=== PATIENT | male | born 1990 | race Caucasian/White ===

== ENCOUNTER 2018-09-29 13:10 | Emergency (ER) | payer OTHER, SELFPAY ==
[2018-09-29] MEDS ORDERED: NA CHLORIDE 0.9% 500 ML ONE (13:50)
[2018-09-29] MEDS ORDERED: NA CHLORIDE 0.9% 1,000 ML ONE (13:50)
--- NOTE | 2018-09-29 14:11 | ER ---
Nurse's Notes [facility] Name: Keshav Robert Age: 28 yrs Sex: Male : 1990 Arrival Date: 09/29/2018 Time: 13:17 Bed 24 Private MD: Diagnosis: Hypoglycemia, unspecified;Type 1 diabetes mellitus Presentation: 09/29 13:17 Presenting complaint: EMS states: Pt is from home with IDDM. Diamond said he was normal ca1 this morning with BS of 300. PT did not eat this morning then took his insulin then took a nap at about 1030 am. Diamond woke up, pt was unresponsive and convulsing for a short period of time. Upon EMS arrival to the scene pt was lethargic with BS of 37. Gave 250ML D10W, BS increased to 189 and is fully alert and awake now. Transition of care: patient was not received from another setting of care. Onset of symptoms was September 29, 2018. Risk Assessment: Do you want to hurt yourself or someone else? Patient reports no desire to harm self or others. Initial Sepsis Screen: Does the patient meet any 2 criteria? No. Patient's initial sepsis screen is negative. Does the patient have a suspected source of infection? No. Patient's initial sepsis screen is negative. Care prior to arrival: Medication(s) given: D10W 250ML IV initiated. 18 GA, in the right antecubital area. 13:17 Method Of Arrival: EMS: [facility] ca1 13:17 Acuity: ALIS 3 ca1 Triage Assessment: 13:26 General: Appears in no apparent distress. comfortable, Behavior is calm, cooperative, ca1 appropriate for age. Pain: Denies pain. Historical: - Allergies: 13:26 No Known Allergies; ca1 - Home Meds: 13:26 Novolin N 100 unit/mL Sub-Q susp [Active]; Novolog Flexpen 100 unit/mL subcutaneous ca1 inpn [Active]; timolol maleate 0.25 % Opht drop 1 drop 2 times per day [Active]; prednisolone acetate 1 % Opht drps 1 drop 4 times per day [Active]; polymyxin B sulf-trimethoprim 10,000 unit- 1 mg/mL ophthalmic drop 1 drop 4 times a day [Active]; - PMHx: 13:26 Diabetes - IDDM; Retinal Detachment; ca1 - PSHx: 13:26 Retinal Surg; ca1 - Immunization history:: Adult Immunizations up to date, Flu vaccine is up to date. - Social history:: Smoking status: Patient/guardian denies using tobacco. - Ebola Screening: : Patient negative for fever greater than or equal to 101.5 degrees Fahrenheit, and additional compatible Ebola Virus Disease symptoms Patient denies exposure to infectious person Patient denies travel to an Ebola-affected area in the 21 days before illness onset No symptoms or risks identified at this time. - Family history:: not pertinent. Screenin:30 Abuse screen: Denies threats or abuse. Denies injuries from another. Nutritional ca1 screening: No deficits noted. Tuberculosis screening: No symptoms or risk factors identified. Fall Risk IV access (20 points). Assessment: 13:30 General: Appears in no apparent distress. comfortable, Behavior is calm, cooperative, ca1 appropriate for age. Pain: Denies pain. Neuro: Level of Consciousness is awake, alert, obeys commands, Oriented to person, place, time, situation, Appropriate for age. Cardiovascular: Heart tones S1 S2 present Capillary refill < 3 seconds Patient's skin is warm and dry. Pulses are all present. Respiratory: Airway is patent Respiratory effort is even, unlabored, Respiratory pattern is regular, symmetrical, Breath sounds are clear bilaterally. GI: Abdomen is flat, non-distended, Bowel sounds present X 4 quads. Abd is soft and non tender X 4 quads. : No deficits noted. No signs and/or symptoms were reported regarding the genitourinary system. EENT: No deficits noted. No signs and/or symptoms were reported regarding the EENT system. Derm: Skin is intact, is healthy with good turgor, Skin is pink, warm \T\ dry. Musculoskeletal: Circulation, motion, and sensation intact. Capillary refill < 3 seconds, Range of motion: intact in all extremities. 13:55 Reassessment: Patient appears in no apparent distress at this time. Family at bedside. ca1 Pt eating. 14:15 Reassessment: Patient appears in no apparent distress at this time. Patient and/or ca1 family updated on plan of care and expected duration. Pain level reassessed. Patient is alert, oriented x 3, equal unlabored respirations, skin warm/dry/pink. Pt consumed meal provided. Pt tolerated well. No N/V reported. 14:21 Reassessment: IVF still infusing. Will discharge as soon as completed. ca1 15:00 Reassessment: Patient appears in no apparent distress at this time. Patient is alert, ca1 oriented x 3, equal unlabored respirations, skin warm/dry/pink. Vital Signs: 13:26 BP 121 / 91; Pulse 105; Resp 17 S; Temp 98.1(O); Pulse Ox 100% on R/A; Weight 74.84 kg ca1 (R); Height 5 ft. 7 in. (170.18 cm) (R); Pain 0/10; 14:15 BP 118 / 74; Pulse 102; Resp 17 S; Pulse Ox 100% on R/A; ca1 15:00 BP 119 / 76; Pulse 102; Resp 17 S; Temp 98(O); Pulse Ox 100% on R/A; ca1 13:26 Body Mass Index 25.84 (74.84 kg, 170.18 cm) ca1 ED Course: 13:17 Patient arrived in ED. ca1 13:20 Aashish Dougherty MD is Attending Physician. diogo 13:22 Triage completed. ca1 13:26 Arm band placed on right wrist. ca1 13:29 Asiya Leger, RN is Primary Nurse. ca1 13:30 Patient has correct armband on for positive identification. Placed in gown. Bed in low ca1 position. Call light in reach. Side rails up X2. Pulse ox on. NIBP on. Warm blanket given. Pillow given. Diet: Patient given a regular meal tray. Patient given juice. 13:30 No provider procedures requiring assistance completed. Maintain EMS IV. Dressing ca1 intact. Good blood return noted. Site clean \T\ dry. Gauge \T\ site: G18 RAC. 15:10 IV discontinued, intact, bleeding controlled, No redness/swelling at site. Pressure ca1 dressing applied. Administered Medications: 13:40 Drug: NS 0.9% (20 ml/kg) 20 ml/kg Route: IV; Rate: 1 bolus; Site: right antecubital; ca1 15:03 Follow up: IV Status: Completed infusion ca1 Point of Care Testing: Blood Glucose: 13:18 Blood Glucose: 103 mg/dL; iw 14:45 Blood Glucose: 130 mg/dL; ca1 Ranges: Outcome: 14:11 Discharge ordered by . diogo 15:10 Discharged to home via wheelchair. ca1 15:10 Condition: stable 15:10 Discharge instructions given to patient, Instructed on discharge instructions, follow up and referral plans. Demonstrated understanding of instructions, follow-up care. 15:14 Patient left the ED. ca1 Signatures: Aashish Dougherty MD MD cha Williams, Irene, RN RN iw Asiya Leger RN RN ca1
[2018-09-29 14:12] LABS: Absolute Lymphocytes (CBC) 1.9 K/uL (0.7-4.9); Basophils % 0.8 % (0-1.3); Eosinophils % 3.5 % (0-4.4); Lymphocytes % 31.5 % (15.3-44.8); MPV 9.6 fL (7.6-11.3); Monocytes % 6.5 % (3.3-12.3); RBC Red Blood Cell Count 4.83 M/uL (4.33-5.43)
--- NOTE | 2018-09-29 14:12 | EDPHYS ---
Physician Documentation [facility] Name: Keshav Robert Age: 28 yrs Sex: Male : 1990 Arrival Date: 09/29/2018 Time: 13:17 Bed 24 Private MD: ED Physician Aashish Dougherty HPI: 09/29 13:31 This 28 yrs old Male presents to ER via EMS with complaints of Low Blood diogo Sugar. 13:31 The patient or guardian reports hypoglycemia, that was potentially precipitated by no diogo particular event. Onset: The symptoms/episode began/occurred this morning. Associated signs and symptoms: Pertinent positives: None. Pertinent negatives: None. The patient has experienced similar episodes in the past, a few times. Historical: - Allergies: 13:26 No Known Allergies; ca1 - Home Meds: 13:26 Novolin N 100 unit/mL Sub-Q susp [Active]; Novolog Flexpen 100 unit/mL subcutaneous ca1 inpn [Active]; timolol maleate 0.25 % Opht drop 1 drop 2 times per day [Active]; prednisolone acetate 1 % Opht drps 1 drop 4 times per day [Active]; polymyxin B sulf-trimethoprim 10,000 unit- 1 mg/mL ophthalmic drop 1 drop 4 times a day [Active]; - PMHx: 13:26 Diabetes - IDDM; Retinal Detachment; ca1 - PSHx: 13:26 Retinal Surg; ca1 - Immunization history:: Adult Immunizations up to date, Flu vaccine is up to date. - Social history:: Smoking status: Patient/guardian denies using tobacco. - Ebola Screening: : Patient negative for fever greater than or equal to 101.5 degrees Fahrenheit, and additional compatible Ebola Virus Disease symptoms Patient denies exposure to infectious person Patient denies travel to an Ebola-affected area in the 21 days before illness onset No symptoms or risks identified at this time. - Family history:: not pertinent. ROS: 13:31 Constitutional: Negative for fever, chills, and weight loss, Eyes: Negative for injury, diogo pain, redness, and discharge, ENT: Negative for injury, pain, and discharge, Neck: Negative for injury, pain, and swelling, Cardiovascular: Negative for chest pain, palpitations, and edema, Respiratory: Negative for shortness of breath, cough, wheezing, and pleuritic chest pain, Abdomen/GI: Negative for abdominal pain, nausea, vomiting, diarrhea, and constipation, Back: Negative for injury and pain, : Negative for injury, bleeding, discharge, and swelling, MS/Extremity: Negative for injury and deformity, Skin: Negative for injury, rash, and discoloration, Psych: Negative for depression, anxiety, suicide ideation, homicidal ideation, and hallucinations, Allergy/Immunology: Negative for hives, rash, and allergies, Hematologic/Lymphatic: Negative for swollen nodes, abnormal bleeding, and unusual bruising. 13:31 Neuro: Positive for weakness. 13:31 Endocrine: Positive for ams. Exam: 13:31 Constitutional: This is a well developed, well nourished patient who is awake, alert, diogo and in no acute distress. Head/Face: Normocephalic, atraumatic. Eyes: Pupils equal round and reactive to light, extra-ocular motions intact. Lids and lashes normal. Conjunctiva and sclera are non-icteric and not injected. Cornea within normal limits. Periorbital areas with no swelling, redness, or edema. ENT: Nares patent. No nasal discharge, no septal abnormalities noted. Tympanic membranes are normal and external auditory canals are clear. Oropharynx with no redness, swelling, or masses, exudates, or evidence of obstruction, uvula midline. Mucous membranes moist. Neck: Trachea midline, no thyromegaly or masses palpated, and no cervical lymphadenopathy. Supple, full range of motion without nuchal rigidity, or vertebral point tenderness. No Meningismus. Chest/axilla: Normal chest wall appearance and motion. Nontender with no deformity. No lesions are appreciated. Cardiovascular: Regular rate and rhythm with a normal S1 and S2. No gallops, murmurs, or rubs. Normal PMI, no JVD. No pulse deficits. Respiratory: Lungs have equal breath sounds bilaterally, clear to auscultation and percussion. No rales, rhonchi or wheezes noted. No increased work of breathing, no retractions or nasal flaring. Abdomen/GI: Soft, non-tender, with normal bowel sounds. No distension or tympany. No guarding or rebound. No evidence of tenderness throughout. Back: No spinal tenderness. No costovertebral tenderness. Full range of motion. Male : Normal genitalia with no discharge or lesions. Skin: Warm, dry with normal turgor. Normal color with no rashes, no lesions, and no evidence of cellulitis. MS/ Extremity: Pulses equal, no cyanosis. Neurovascular intact. Full, normal range of motion. Neuro: Awake and alert, GCS 15, oriented to person, place, time, and situation. Cranial nerves II-XII grossly intact. Motor strength 5/5 in all extremities. Sensory grossly intact. Cerebellar exam normal. Normal gait. Psych: Awake, alert, with orientation to person, place and time. Behavior, mood, and affect are within normal limits. Vital Signs: 13:26 BP 121 / 91; Pulse 105; Resp 17 S; Temp 98.1(O); Pulse Ox 100% on R/A; Weight 74.84 kg ca1 (R); Height 5 ft. 7 in. (170.18 cm) (R); Pain 0/10; 14:15 BP 118 / 74; Pulse 102; Resp 17 S; Pulse Ox 100% on R/A; ca1 15:00 BP 119 / 76; Pulse 102; Resp 17 S; Temp 98(O); Pulse Ox 100% on R/A; ca1 13:26 Body Mass Index 25.84 (74.84 kg, 170.18 cm) ca1 MDM: 13:20 Patient medically screened. [facility] 13:34 Data reviewed: vital signs, nurses notes, lab test result(s). [facility] 09/29 13:20 Order name: Glucose, Ancillary Testing; Complete Time: 14:09 [facility] 09/29 13:20 Order name: CBC with Diff [facility] 09/29 13:21 Order name: Comprehensive Metabolic Panel; Complete Time: 14:41 [facility] 09/29 13:21 Order name: Diet Heart Healthy; Complete Time: 13:22 [facility] 09/29 14:49 Order name: Glucose, Ancillary Testing [facility] 09/29 14:09 Order name: PO challenge: juice; Complete Time: 14:15 [facility] 09/29 14:41 Order name: Blood Glucose Level; Complete Time: 14:45 [facility] Administered Medications: 13:40 Drug: NS 0.9% (20 ml/kg) 20 ml/kg Route: IV; Rate: 1 bolus; Site: right antecubital; ca1 15:03 Follow up: IV Status: Completed infusion ca1 Point of Care Testing: Blood Glucose: 13:18 Blood Glucose: 103 mg/dL; iw 14:45 Blood Glucose: 130 mg/dL; ca1 Ranges: Critical Glucose Levels:Adult <50 mg/dl or >400 mg/dl <40 mg/dl or >180 mg/dl Disposition: 09/29/18 14:11 Discharged to Home. Impression: Hypoglycemia, unspecified, Type 1 diabetes mellitus. - Condition is Stable. - Discharge Instructions: Type 1 Diabetes Mellitus, Diagnosis, Adult, Hypoglycemia, Blood Glucose Monitoring, Adult, Hypoglycemia, [id number]. - Medication Reconciliation Form, Thank You Letter, Antibiotic Education, Prescription Opioid Use form. - Follow up: Private Physician; When: 2 - 3 days; Reason: Recheck today's complaints, Continuance of care, Re-evaluation by your physician. - Problem is new. - Symptoms have improved. Signatures: Dispatcher [employer] Aashish Gilbert MD MD cha Acob, Cheryl, RN RN ca1 Corrections: (The following items were deleted from the chart) 15:14 14:11 09/29/2018 14:11 Discharged to Home. Impression: Hypoglycemia, unspecified; Type ca1 1 diabetes mellitus. Condition is Stable. Discharge Instructions: Type 1 Diabetes Mellitus, Diagnosis, Adult, Hypoglycemia, Blood Glucose Monitoring, Adult, Hypoglycemia, [id number]. Forms are Medication Reconciliation Form, Thank You Letter, Antibiotic Education, Prescription Opioid Use. Follow up: Private Physician; When: 2 - 3 days; Reason: Recheck today's complaints, Continuance of care, Re-evaluation by your physician. Problem is new. Symptoms have improved. diogo
[2018-09-29 14:13] LABS: ALT/SGPT 29 U/L (12-78); AST/SGOT 20 U/L (15-37); Albumin 3.1 g/dL (3.4-5.0); Alkaline Phosphatase 95 U/L (45-117); BUN Blood Urea Nitrogen 21 mg/dL (7-18); Bicarbonate 30 mmol/L (21-32); Bilirubin Total 0.9 mg/dL (0.2-1.0); Glucose Level 67 mg/dL (74-106); Potassium 4.2 mmol/L (3.5-5.1); Sodium Level 141 mmol/L (136-145)
[2018-09-29 16:22] LABS: Blood Morphology Comment NOT SEEN (NOT SEEN); Platelet Estimate ADEQ
== END 2018-09-29 15:14 | disposition home or self-care (01) ==
LOC: ER 13:10
DX: E10.649 Type 1 diabetes mellitus with hypoglycemia without coma (principal); Z79.4 Long term (current) use of insulin
CPT/HCPCS: 36415; 80053; 82962; 85025; 96360; 99284; J7030

== ENCOUNTER 2018-11-09 14:16 | Emergency (ER) | payer SELFPAY ==
[2018-11-09 15:01] LABS: Basophils % 0.4 % (0-1.3); Lymphocytes % 19.6 % (15.3-44.8); MPV 9.5 fL (7.6-11.3); RBC Red Blood Cell Count 4.84 M/uL (4.33-5.43)
--- NOTE | 2018-11-09 15:01 | EDPHYS ---
Physician Documentation [facility] Name: Keshav Robert Age: 28 yrs Sex: Male : 1990 Arrival Date: 11/09/2018 Time: 14:21 Bed 7 Private MD: ED Physician Aashish Dougherty HPI: 11/09 14:51 This 28 yrs old Male presents to ER via EMS with complaints of Low Blood diogo Sugar. 14:51 The patient or guardian reports hypoglycemia, that was potentially precipitated by no diogo particular event. Onset: The symptoms/episode began/occurred just prior to arrival. Associated signs and symptoms: Pertinent positives: ams. The patient has not experienced similar symptoms in the past. Historical: - Allergies: 14:24 No Known Allergies; la1 - PMHx: 14:24 Diabetes - IDDM; RETINAL DETACHMENT; la1 - Immunization history:: Adult Immunizations up to date. - Social history:: Smoking status: Patient/guardian denies using tobacco. - Ebola Screening: : No symptoms or risks identified at this time. ROS: 14:56 Constitutional: Negative for fever, chills, and weight loss, ENT: Negative for injury, diogo pain, and discharge, Neck: Negative for injury, pain, and swelling, Cardiovascular: Negative for chest pain, palpitations, and edema, Respiratory: Negative for shortness of breath, cough, wheezing, and pleuritic chest pain, Abdomen/GI: Negative for abdominal pain, nausea, vomiting, diarrhea, and constipation, Back: Negative for injury and pain, : Negative for injury, bleeding, discharge, and swelling, MS/Extremity: Negative for injury and deformity, Skin: Negative for injury, rash, and discoloration, Neuro: Negative for headache, weakness, numbness, tingling, and seizure, Psych: Negative for depression, anxiety, suicide ideation, homicidal ideation, and hallucinations, Allergy/Immunology: Negative for hives, rash, and allergies, Endocrine: Negative for neck swelling, polydipsia, polyuria, polyphagia, and marked weight changes, Hematologic/Lymphatic: Negative for swollen nodes, abnormal bleeding, and unusual bruising. 14:56 Eyes: Positive for blurry vision. Exam: 14:56 Constitutional: This is a well developed, well nourished patient who is awake, alert, diogo and in no acute distress. Head/Face: Normocephalic, atraumatic. Eyes: Pupils equal round and reactive to light, extra-ocular motions intact. Lids and lashes normal. Conjunctiva and sclera are non-icteric and not injected. Cornea within normal limits. Periorbital areas with no swelling, redness, or edema. ENT: Nares patent. No nasal discharge, no septal abnormalities noted. Tympanic membranes are normal and external auditory canals are clear. Oropharynx with no redness, swelling, or masses, exudates, or evidence of obstruction, uvula midline. Mucous membranes moist. Neck: Trachea midline, no thyromegaly or masses palpated, and no cervical lymphadenopathy. Supple, full range of motion without nuchal rigidity, or vertebral point tenderness. No Meningismus. Chest/axilla: Normal chest wall appearance and motion. Nontender with no deformity. No lesions are appreciated. Cardiovascular: Regular rate and rhythm with a normal S1 and S2. No gallops, murmurs, or rubs. Normal PMI, no JVD. No pulse deficits. Respiratory: Lungs have equal breath sounds bilaterally, clear to auscultation and percussion. No rales, rhonchi or wheezes noted. No increased work of breathing, no retractions or nasal flaring. Abdomen/GI: Soft, non-tender, with normal bowel sounds. No distension or tympany. No guarding or rebound. No evidence of tenderness throughout. Back: No spinal tenderness. No costovertebral tenderness. Full range of motion. Male : Normal genitalia with no discharge or lesions. Skin: Warm, dry with normal turgor. Normal color with no rashes, no lesions, and no evidence of cellulitis. MS/ Extremity: Pulses equal, no cyanosis. Neurovascular intact. Full, normal range of motion. Neuro: Awake and alert, GCS 15, oriented to person, place, time, and situation. Cranial nerves II-XII grossly intact. Motor strength 5/5 in all extremities. Sensory grossly intact. Cerebellar exam normal. Normal gait. Psych: Awake, alert, with orientation to person, place and time. Behavior, mood, and affect are within normal limits. Vital Signs: 14:24 BP 150 / 100; Pulse 89; Resp 16; Pulse Ox 98% on R/A; Weight 74.84 kg; Height 5 ft. 7 la1 in. (170.18 cm); 16:07 BP 139 / 89; Pulse 99; Resp 18; Temp 98.5; Pulse Ox 100% on R/A; mg2 14:24 Body Mass Index 25.84 (74.84 kg, 170.18 cm) la1 MDM: 14:26 Patient medically screened. [facility] 14:57 Data reviewed: vital signs, nurses notes, lab test result(s), EKG. [facility] 11/09 14:28 Order name: CBC with Diff; Complete Time: 15:47 [facility] 11/09 14:28 Order name: Comprehensive Metabolic Panel; Complete Time: 15:17 [facility] 11/09 14:28 Order name: EKG; Complete Time: 14:29 [facility] 11/09 14:28 Order name: EKG - Nurse/Tech; Complete Time: 14:53 [facility] 11/09 14:28 Order name: Diet Regular; Complete Time: 14:29 [facility] 11/09 15:38 Order name: Urine Dipstick--Ancillary (enter results) 11/09 14:28 Order name: Urine Dipstick-Ancillary (obtain specimen); Complete Time: 15:40 [facility] Administered Medications: No medications were administered Point of Care Testing: Blood Glucose: 14:28 Blood Glucose: 244 mg/dL; jl7 16:04 Blood Glucose: 236 mg/dL; mg2 Ranges: Critical Glucose Levels:Adult <50 mg/dl or >400 mg/dl <40 mg/dl or >180 mg/dl Disposition: 11/09/18 14:59 Discharged to Home. Impression: Hypoglycemia, unspecified, Vision sensitivity deficiencies - blurry, Type 1 diabetes mellitus. - Condition is Stable. - Discharge Instructions: Hypoglycemia, Blood Glucose Monitoring, Adult, Hypoglycemia, [id number]. - Medication Reconciliation Form, Thank You Letter, Antibiotic Education, Prescription Opioid Use form. - Follow up: Private Physician; When: 2 - 3 days; Reason: Recheck today's complaints, Continuance of care, Re-evaluation by your physician. - Problem is new. - Symptoms have improved. Signatures: Dispatcher [employer] Aashish Gilbert MD MD cha Attema, Lee RN RN la1 Lalo Chanel RN RN mg2 Corrections: (The following items were deleted from the chart) 16:23 14:59 11/09/2018 14:59 Discharged to Home. Impression: Hypoglycemia, unspecified; mg2 Vision sensitivity deficiencies - blurry; Type 1 diabetes mellitus. Condition is Stable. Discharge Instructions: Hypoglycemia, Blood Glucose Monitoring, Adult, Hypoglycemia, [id number]. Forms are Medication Reconciliation Form, Thank You Letter, Antibiotic Education, Prescription Opioid Use. Follow up: Private Physician; When: 2 - 3 days; Reason: Recheck today's complaints, Continuance of care, Re-evaluation by your physician. Problem is new. Symptoms have improved. diogo
--- NOTE | 2018-11-09 15:01 | ER ---
Nurse's Notes [facility] Name: Keshav Robert Age: 28 yrs Sex: Male : 1990 Arrival Date: 11/09/2018 Time: 14:21 Bed 7 Private MD: Diagnosis: Hypoglycemia, unspecified;Vision sensitivity deficiencies-blurry;Type 1 diabetes mellitus Presentation: 11/09 14:21 Presenting complaint: EMS states: Pt had right retinal sx this morning and when he left la1 they gave him 5u insulin and he fell asleep at home, when he woke up he was not acting right so EMS was called, BGL initially was 32, to having focal neurological motor twitches. Given glucagon 1mg IM and 250cc of D10. Last BGL before arrival was 262. pt has not eaten. Transition of care: patient was not received from another setting of care. Onset of symptoms was November 09, 2018. Risk Assessment: Do you want to hurt yourself or someone else? Patient reports no desire to harm self or others. Initial Sepsis Screen: Does the patient meet any 2 criteria? No. Patient's initial sepsis screen is negative. Does the patient have a suspected source of infection? No. Patient's initial sepsis screen is negative. Care prior to arrival: None. 14:21 Method Of Arrival: EMS: [facility] la1 14:21 Acuity: ALIS 3 la1 Historical: - Allergies: 14:24 No Known Allergies; la1 - PMHx: 14:24 Diabetes - IDDM; RETINAL DETACHMENT; la1 - Immunization history:: Adult Immunizations up to date. - Social history:: Smoking status: Patient/guardian denies using tobacco. - Ebola Screening: : No symptoms or risks identified at this time. Screenin:25 Abuse screen: Denies threats or abuse. Nutritional screening: No deficits noted. la1 Tuberculosis screening: No symptoms or risk factors identified. Fall Risk None identified. Assessment: 14:24 General: Appears in no apparent distress. Behavior is calm, cooperative. Pain: Denies la1 pain. Neuro: Level of Consciousness is awake, alert, obeys commands, Oriented to person, place, time, situation. Cardiovascular: Capillary refill < 3 seconds Patient's skin is warm and dry. Respiratory: Airway is compromised Respiratory effort is even, unlabored, Respiratory pattern is regular, symmetrical. GI: No signs and/or symptoms were reported involving the gastrointestinal system. : No signs and/or symptoms were reported regarding the genitourinary system. EENT: Eye patch and dressing over right eye S/P retinal sx this morning. 14:39 Reassessment: Pt reports that the vision in his left eye is worse than it was before he la1 fell asleep, reports having the same surgery on his left eye about 2 weeks ago. 16:11 Reassessment: Patient states feeling better. mg2 Vital Signs: 14:24 BP 150 / 100; Pulse 89; Resp 16; Pulse Ox 98% on R/A; Weight 74.84 kg; Height 5 ft. 7 la1 in. (170.18 cm); 16:07 BP 139 / 89; Pulse 99; Resp 18; Temp 98.5; Pulse Ox 100% on R/A; mg2 14:24 Body Mass Index 25.84 (74.84 kg, 170.18 cm) la1 ED Course: 14:21 Patient arrived in ED. la1 14:23 Triage completed. la1 14:24 Arm band placed on right wrist. la1 14:25 Bed in low position. Call light in reach. la1 14:25 Maintain EMS IV. Dressing intact. Good blood return noted. Site clean \T\ dry. Gauge \T\ la 1 site: 20g RFA. 14:26 Aashish Dougherty MD is Attending Physician. [facility] 14:31 Arik Mukherjee, RN is Primary Nurse. la1 14:45 EKG done, by nursery technician. reviewed by Aashish Dougherty MD. at1 16:11 No provider procedures requiring assistance completed. IV discontinued, intact, mg2 bleeding controlled, No redness/swelling at site. Pressure dressing applied. Administered Medications: No medications were administered Point of Care Testing: Blood Glucose: 14:28 Blood Glucose: 244 mg/dL; jl7 16:04 Blood Glucose: 236 mg/dL; mg2 Ranges: Outcome: 14:59 Discharge ordered by . diogo 16:11 Discharged to home ambulatory, with family. mg2 16:11 Condition: good 16:11 Discharge instructions given to patient, family, Instructed on discharge instructions, follow up and referral plans. Demonstrated understanding of instructions, follow-up care. 16:23 Patient left the ED. mg2 Signatures: Aashish Dougherty MD MD cha Gonzales, Amanda, drug and alcohol treatment specialist EKG Tat1 Arik Mukherjee RN RN la1 Mami Burleson RN RN jl7 Lalo Chanel RN RN mg2 Corrections: (The following items were deleted from the chart) 16:11 16:07 BP 139 / 89; Pulse 99bpm; Resp 18bpm; Pulse Ox 100% RA; mg2 mg2
[2018-11-09 15:05] LABS: ALT/SGPT 34 U/L (12-78); AST/SGOT 19 U/L (15-37); Albumin 3.2 g/dL (3.4-5.0); Alkaline Phosphatase 81 U/L (45-117); BUN Blood Urea Nitrogen 17 mg/dL (7-18); Bicarbonate 28 mmol/L (21-32); Bilirubin Total 1.2 mg/dL (0.2-1.0); Glucose Level 182 mg/dL (74-106); Potassium 3.5 mmol/L (3.5-5.1); Protein, Total 6.8 g/dL (6.4-8.2); Sodium Level 143 mmol/L (136-145)
[2018-11-09 16:23] LABS: Urine Blood 1+ (NEG); Urine Glucose 2+ (NEG); Urine Protein 2+ (NEG); Urine Specific Gravity 1.025 (1.005-1.030); Urine pH 5.5 (5.0-7.0)
--- NOTE | 2018-11-10 11:48 | EKG ---
Test Date: 2018-11-09 Test Time: 14:41:41 Inside Sales Account Executive: DAIVD MEASUREMENT RESULTS: Intervals: Rate: 94 IN: 148 QRSD: 92 QT: 344 QTc: 430 [place]: P: 72 IN: 148 QRS: 63 T: -47 INTERPRETIVE STATEMENTS: Normal sinus rhythm Nonspecific T wave abnormality Abnormal ECG Compared to ECG 11/12/1999 15:16:00 T-wave abnormality now present Electronically Signed On 11-10-18 11:45:15 CDT by Cristi Molina
== END 2018-11-09 16:23 | disposition home or self-care (01) ==
LOC: ER 14:16
DX: E10.649 Type 1 diabetes mellitus with hypoglycemia without coma (principal)
CPT/HCPCS: 36415; 80053; 81003; 82962; 85025; 93005; 99283

== ENCOUNTER 2019-12-22 08:23 | Emergency (ER) | payer SELFPAY ==
[2019-12-22 08:47] LABS: Absolute Lymphocytes (CBC) 3.8 K/uL (0.7-4.9); Basophils % 0.8 % (0-1.3); Hematocrit 35.9 % (39.6-49.0); Lymphocytes % 43.1 % (15.3-44.8); MPV 8.7 fL (7.6-11.3); RBC Red Blood Cell Count 4.04 M/uL (4.33-5.43)
[2019-12-22 08:58] LABS: BUN Blood Urea Nitrogen 20 mg/dL (7-18); Bicarbonate 28 mmol/L (21-32); Glucose Level 102 mg/dL (74-106); Potassium 3.3 mmol/L (3.5-5.1); Sodium Level 142 mmol/L (136-145)
--- NOTE | 2019-12-22 11:36 | EDPHYS ---
Physician Documentation [facility] Name: Keshav Robert Age: 29 yrs Sex: Male : 1990 Arrival Date: 12/22/2019 Time: 08:25 Bed 3 Private MD: ED Physician Kaveh Razo HPI: 12/21 08:39 This 29 yrs old Male presents to ER via EMS with complaints of Low Blood kdr Sugar. 08:39 The patient awoke to the presence of EMS this morning. He feels that he may not have kdr eaten a lot last night - small dinner and then took his insulin later than usual. Onset: The symptoms/episode began/occurred suddenly, just prior to arrival, this morning. Severity of symptoms: At their worst the symptoms were incapacitating in the emergency department the symptoms have resolved. The patient has experienced similar episodes in the past, a few times. The patient has not recently seen a physician. Historical: - Allergies: 08:41 No Known Allergies; sv - PMHx: 08:41 Diabetes - IDDM; RETINAL DETACHMENT; sv - Immunization history:: Adult Immunizations up to date. - Social history:: Smoking status: . ROS: 08:39 Constitutional: Negative for fever, chills, and weight loss, Eyes: Negative for injury, kdr pain, redness, and discharge, ENT: Negative for injury, pain, and discharge, Neck: Negative for injury, pain, and swelling, Cardiovascular: Negative for chest pain, palpitations, and edema, Respiratory: Negative for shortness of breath, cough, wheezing, and pleuritic chest pain, Abdomen/GI: Negative for abdominal pain, nausea, vomiting, diarrhea, and constipation, Back: Negative for injury and pain, : Negative for injury, bleeding, discharge, and swelling, MS/Extremity: Negative for injury and deformity, Skin: Negative for injury, rash, and discoloration, Neuro: Negative for headache, weakness, numbness, tingling, and seizure activity. Psych: Negative for depression, anxiety, suicide ideation, homicidal ideation, and hallucinations, Allergy/Immunology: Negative for hives, rash, and allergies, Hematologic/Lymphatic: Negative for swollen nodes, abnormal bleeding, and unusual bruising. 08:39 Endocrine: Positive for Hypoglycemia. Exam: 08:39 Constitutional: This is a well developed, well nourished patient who is awake, alert, kdr and in no acute distress. Head/Face: Normocephalic, atraumatic. Eyes: Pupils equal round and reactive to light, extra-ocular motions intact. Lids and lashes normal. Conjunctiva and sclera are non-icteric and not injected. Cornea within normal limits. Periorbital areas with no swelling, redness, or edema. Neck: Trachea midline, no thyromegaly or masses palpated, and no cervical lymphadenopathy. Supple, full range of motion without nuchal rigidity, or vertebral point tenderness. No Meningismus. Chest/axilla: Normal chest wall appearance and motion. Nontender with no deformity. No lesions are appreciated. Cardiovascular: Regular rate and rhythm with a normal S1 and S2. No gallops, murmurs, or rubs. Normal PMI, no JVD. No pulse deficits. Respiratory: Lungs have equal breath sounds bilaterally, clear to auscultation and percussion. No rales, rhonchi or wheezes noted. No increased work of breathing, no retractions or nasal flaring. Abdomen/GI: Soft, non-tender, with normal bowel sounds. No distension or tympany. No guarding or rebound. No evidence of tenderness throughout. Back: No spinal tenderness. No costovertebral tenderness. Full range of motion. Skin: Warm, dry with normal turgor. Normal color with no rashes, no lesions, and no evidence of cellulitis. MS/ Extremity: Pulses equal, no cyanosis. Neurovascular intact. Full, normal range of motion. Neuro: Awake and alert, GCS 15, oriented to person, place, time, and situation. Cranial nerves II-XII grossly intact. Motor strength 5/5 in all extremities. Sensory grossly intact. Cerebellar exam normal. Normal gait. Psych: Awake, alert, with orientation to person, place and time. Behavior, mood, and affect are within normal limits. Vital Signs: 08:42 BP 124 / 75; Pulse 108; Resp 16; Temp 98.2; Pulse Ox 100% ; Pain 0/10; sv 10:39 BP 119 / 80; Pulse 94; Resp 16; Pulse Ox 98% on R/A; iw 11:34 BP 122 / 89; Pulse 90; Resp 16; Pulse Ox 98% ; sv MDM: 08:39 Data reviewed: vital signs, nurses notes, lab test result(s). Counseling: I had a kdr detailed discussion with the patient and/or guardian regarding: the historical points, exam findings, and any diagnostic results supporting the discharge/admit diagnosis, lab results, the need for outpatient follow up. 11:35 Patient medically screened. kdr 12/21 08:35 Order name: CBC with Diff; Complete Time: 11:36 sv 12/21 08:35 Order name: Basic Metabolic Panel; Complete Time: 11:36 sv 12/21 08:44 Order name: Glucose, Ancillary Testing; Complete Time: 11:36 EDFL 12/21 09:24 Order name: Glucose, Ancillary Testing; Complete Time: 11:36 EDFL 12/21 11:46 Order name: Glucose, Ancillary Testing [facility] 12/21 08:35 Order name: IV Saline Lock; Complete Time: 08:35 sv 12/21 08:35 Order name: Diet Ada 2000 Carlos; Complete Time: 08:35 sv 12/21 08:35 Order name: Labs collected and sent; Complete Time: 08:35 sv Administered Medications: 11:43 Drug: Potassium Chloride 40 mEq Route: PO; sv 11:43 Follow up: Response: No adverse reaction sv Point of Care Testing: Blood Glucose: 08:25 Blood Glucose: 91 mg/dL; sv Ranges: Critical Glucose Levels:Adult <50 mg/dl or >400 mg/dl <40 mg/dl or >180 mg/dl Disposition: 12/22/19 11:35 Discharged to Home. Impression: Hypoglycemia, unspecified. - Condition is Stable. - Discharge Instructions: Blood Glucose Monitoring, Adult, Hypoglycemia, [id number]. - Medication Reconciliation Form, Thank You Letter form. - Follow up: Private Physician; When: 2 - 3 days; Reason: If symptoms return, Further diagnostic work-up, Recheck today's complaints, Continuance of care, Re-evaluation by your physician. - Problem is an acute exacerbation. - Symptoms are resolved. Signatures: Dispatcher [employer] Li Miranda, RN RN Kaveh Razo MD MD [facility] Keirra Moss RN RN hb Corrections: (The following items were deleted from the chart) 11:50 11:35 12/22/2019 11:35 Discharged to Home. Impression: Hypoglycemia, unspecified. hb Condition is Stable. Forms are Medication Reconciliation Form, Thank You Letter, Antibiotic Education, Prescription Opioid Use. Follow up: Private Physician; When: 2 - 3 days; Reason: If symptoms return, Further diagnostic work-up, Recheck today's complaints, Continuance of care, Re-evaluation by your physician. Problem is an acute exacerbation. Symptoms are resolved. kdr
--- NOTE | 2019-12-22 11:36 | ER ---
Nurse's Notes [facility] Name: Keshav Robert Age: 29 yrs Sex: Male : 1990 Arrival Date: 12/22/2019 Time: 08:25 Bed 3 Private MD: Diagnosis: Hypoglycemia, unspecified Presentation: 12/21 08:20 Chief complaint: EMS states: called out by spouse for hypoglycemia and seizure like sv activity. On EMS arrival pt was diaphoretic, BS-28. 20G L AC started, D10 500 mls started and oral glucose given to pt. HR initially was 120s and after fluids is 100s. 08:20 Method Of Arrival: EMS: [facility] sv 08:20 Acuity: ALIS 2 sv 08:42 Coronavirus screen: Client denies travel out of the [place] in the last 14 days. At this sv time, the client does not indicate any symptoms associated with coronavirus-19. Ebola Screen: No symptoms or risks identified at this time. Initial Sepsis Screen: Does the patient meet any 2 criteria? No. Patient's initial sepsis screen is negative. Does the patient have a suspected source of infection? No. Patient's initial sepsis screen is negative. Risk Assessment: Do you want to hurt yourself or someone else? Patient reports no desire to harm self or others. Onset of symptoms was December 22, 2019. Triage Assessment: 08:20 General: Appears in no apparent distress. comfortable, well developed, Behavior is sv calm, cooperative, appropriate for age. Pain: Denies pain. Neuro: Level of Consciousness is awake, alert, obeys commands, Oriented to person, place, time, situation, Moves all extremities. Full function. Respiratory: Airway is patent Respiratory effort is even, unlabored, Respiratory pattern is regular, symmetrical. Derm: Skin is pink, warm \T\ dry. Historical: - Allergies: 08:41 No Known Allergies; sv - PMHx: 08:41 Diabetes - IDDM; RETINAL DETACHMENT; sv - Immunization history:: Adult Immunizations up to date. - Social history:: Smoking status: . Screenin:41 Abuse screen: Denies threats or abuse. Denies injuries from another. Nutritional sv screening: No deficits noted. Tuberculosis screening: No symptoms or risk factors identified. Fall Risk None identified. Assessment: 10:41 Reassessment: Patient appears in no apparent distress at this time. Patient and/or iw family updated on plan of care and expected duration. Pain level reassessed. Patient is alert, oriented x 3, equal unlabored respirations, skin warm/dry/pink. Patient states feeling better. Patient states symptoms have improved. 11:33 Reassessment: Patient appears in no apparent distress at this time. Patient and/or sv family updated on plan of care and expected duration. Pain level reassessed. Patient is alert, oriented x 3, equal unlabored respirations, skin warm/dry/pink. Vital Signs: 08:42 BP 124 / 75; Pulse 108; Resp 16; Temp 98.2; Pulse Ox 100% ; Pain 0/10; sv 10:39 BP 119 / 80; Pulse 94; Resp 16; Pulse Ox 98% on R/A; iw 11:34 BP 122 / 89; Pulse 90; Resp 16; Pulse Ox 98% ; sv ED Course: 08:20 Patient has correct armband on for positive identification. Bed in low position. Call sv light in reach. Side rails up X2. Pulse ox on. NIBP on. Door closed. Warm blanket given. Head of bed elevated. 08:20 Initial lab(s) drawn, by me, sent to lab. Maintain EMS IV. Dressing intact. Good blood sv return noted. Site clean \T\ dry. Gauge \T\ site: 20G L AC. 08:25 Patient arrived in ED. sv 08:25 Li White RN is Primary Nurse. sv 08:30 Kaveh Razo MD is Attending Physician. kdr 08:38 Triage completed. sv 08:41 Arm band placed on. sv 11:46 No provider procedures requiring assistance completed. IV discontinued, intact, sv bleeding controlled, No redness/swelling at site. Pressure dressing applied. Administered Medications: 11:43 Drug: Potassium Chloride 40 mEq Route: PO; sv 11:43 Follow up: Response: No adverse reaction sv Point of Care Testing: Blood Glucose: 08:25 Blood Glucose: 91 mg/dL; sv Ranges: Outcome: 11:35 Discharge ordered by . kdr 11:46 Discharged to home ambulatory. sv 11:46 Condition: stable 11:46 Condition: improved 11:46 Discharge instructions given to patient, Instructed on discharge instructions, follow up and referral plans. Demonstrated understanding of instructions, follow-up care. 11:50 Patient left the ED. hb Signatures: Li White RN RN sv Kaveh Razo MD MD kdr Williams, Irene, RN RN iw Kierra Moss RN RN hb
[2019-12-22] MEDS ORDERED: POTASSIUM CL SA 10 MEQ TAB PO ONE (11:51)
[2019-12-22 12:05] VITALS: TEMP 98.2
[2019-12-22 12:06] VITALS: O2SAT 98
[2019-12-22 12:07] VITALS: BP 122/89
== END 2019-12-22 11:50 | disposition home or self-care (01) ==
LOC: ER 08:23
DX: E11.649 Type 2 diabetes mellitus with hypoglycemia without coma (principal)
CPT/HCPCS: 36415; 80048; 82947; 85025; 99284

== ENCOUNTER 2020-05-01 10:14 | Emergency (ER) | payer SELFPAY ==
--- NOTE | 2020-05-01 13:13 | ER ---
Nurse's Notes [facility] Name: Keshav Robert Age: 29 yrs Sex: Male : 1990 Arrival Date: 05/01/2020 Time: 10:16 Bed 27 Private MD: Diagnosis: Presentation: 05/01 10:24 Chief complaint: Patient states: Abscess to R back for 1 week. Saw his doctor, been on sv Bactrim since 04/29. Site still hurts, but states its getting smaller. Started running fever today of 101 with a cough. Coronavirus screen: Client denies travel out of the [place] in the last 14 days. chills, cough unrelated to allergies, difficulty breathing, fever, shortness of breath, Client presents with at least one sign or symptom that may indicate coronavirus-19. Standard/surgical mask placed on the client. Ebola Screen: Patient denies travel to an Ebola-affected area in the 21 days before illness onset. Initial Sepsis Screen: Does the patient meet any 2 criteria? HR > 90 bpm. No. Patient's initial sepsis screen is negative. Does the patient have a suspected source of infection? Yes: Productive cough/pneumonia Skin breakdown/wound. Risk Assessment: Do you want to hurt yourself or someone else? Patient reports no desire to harm self or others. Onset of symptoms was April 24, 2020. 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 - Social history:: Smoking status: Patient denies any tobacco usage or history of. Screenin:17 Abuse screen: Denies threats or abuse. Denies injuries from another. Nutritional ca1 screening: No deficits noted. Tuberculosis screening: No symptoms or risk factors identified. Fall Risk IV access (20 points). Assessment: 12:17 General: Appears in no apparent distress. comfortable, Behavior is calm, cooperative, ca1 appropriate for age, Reports fever for > 3 days. Pain: Complains of pain in anterior aspect of right upper chest Pain currently is 6 out of 10 on a pain scale. Pain began 1 day ago. Is intermittent. Neuro: Level of Consciousness is awake, alert, obeys commands, Oriented to person, place, time, situation. Cardiovascular: Heart tones S1 S2 present Capillary refill < 3 seconds Patient's skin is warm and dry. Respiratory: Airway is patent Respiratory effort is even, unlabored, Respiratory pattern is regular, symmetrical, Breath sounds are clear bilaterally. GI: Abdomen is flat, non-distended, Bowel sounds present X 4 quads. Abd is soft and non tender X 4 quads. : No signs and/or symptoms were reported regarding the genitourinary system. EENT: No signs and/or symptoms were reported regarding the EENT system. Derm: Skin is intact, is healthy with good turgor, Skin is pink, warm \\T\\ dry. Abscess located on right scapular area is quarter sized, pt reports have seen the doctor, I\\T\\D done. Pt on ABX for 2 days now. Still complaining of pain on the area. Musculoskeletal: Circulation, motion, and sensation intact. Capillary refill < 3 seconds. 13:00 Reassessment: Patient appears in no apparent distress at this time. Patient is alert, ca1 oriented x 3, equal unlabored respirations, skin warm/dry/pink. 13:12 Reassessment: Pt states, "my is here to pick me up, am just gonna go". ca1 Vital Signs: 10:24 BP 134 / 85; Pulse 107; Resp 16; Temp 98.6; Pulse Ox 96% on R/A; Weight 79.38 kg; sv Height 5 ft. 7 in. (170.18 cm); Pain 7/10; 12:17 BP 155 / 99; Pulse 102; Resp 18 S; Pulse Ox 99% on R/A; ca1 13:00 BP 156 / 96; Pulse 96; Resp 18 S; Pulse Ox 99% on R/A; ca1 10:24 Body Mass Index 27.41 (79.38 kg, 170.18 cm) sv ED Course: 10:16 Patient arrived in ED. as 10:22 Arm band placed on. sv 10:29 Triage completed. sv 12:14 Asiya Leger RN is Primary Nurse. ca1 12:16 Kaveh Razo MD is Attending Physician. kdr 12:17 Patient has correct armband on for positive identification. Placed in gown. Bed in low ca1 position. Call light in reach. Side rails up X2. Pulse ox on. NIBP on. Warm blanket given. 13:12 No provider procedures requiring assistance completed. Patient did not have IV access ca1 during this emergency room visit. Administered Medications: No medications were administered Outcome: 13:13 Patient left the ED. ca1 Signatures: Li White RN RN Kaveh Razo MD MD kdr Martinez, Amelia as Acob, Cheryl, RN RN ca1
[2020-05-01 13:20] VITALS: TEMP 98.6
[2020-05-01 13:22] VITALS: O2SAT 99
[2020-05-01 13:23] VITALS: BP 156/96
== END 2020-05-01 13:13 | disposition left against medical advice (07) ==
LOC: ER 10:14
DX: Z53.21 Procedure and treatment not carried out due to patient leaving prior to being seen by health care provider (principal)
CPT/HCPCS: 99283

== ENCOUNTER 2020-08-30 10:11 | Emergency (ER) | payer SELFPAY ==
--- OUTSIDE RECORDS SUMMARY | 2020-08-30 10:13 | XMS REPORT | Continuity of Care Document ---
:1990 Author Organization [facility] t Address [address] [place] [address] Care Team Providers Name Role Phone Jeana DIAS Attending Clinician Unavailable Garcia MANAGER [employer] Attending Clinician Problems This patient has no known problems. Allergies, Adverse Reactions, Alerts This patient has no known allergies or adverse reactions. Medications This patient has no known medications. Procedures This patient has no known procedures. Encounters Start End Encounter Admission Attending Care Care Encounter Source Date/Time Date/Time Type Type Clinicians Facility Department ID 2020-05-02 2020-05-02 Letter [facility] [place] [id number] 00:00:00 00:00:00 (Out) Elsie WILCOX [id number] [facility] [id number] 2020-05-01 2020-05-01 Emergency MIGUEL Zelaya [id number] 14:23:00 16:40:00 Kaveh Julio [id number] [place] [id number] [place] [id number] Results This patient has no known results.
[2020-08-30 10:40] LABS: Absolute Lymphocytes (CBC) 1.9 K/uL (0.7-4.9); Basophils % 0.7 % (0-1.3); Hematocrit 34.5 % (39.6-49.0); Lymphocytes % 25.4 % (15.3-44.8); MPV 8.8 fL (7.6-11.3); RBC Red Blood Cell Count 3.87 M/uL (4.33-5.43)
[2020-08-30 10:47] LABS: Protime INR 0.85
[2020-08-30 11:10] LABS: ALT/SGPT 21 U/L (12-78); AST/SGOT 20 U/L (15-37); Albumin 2.6 g/dL (3.4-5.0); Alkaline Phosphatase 113 U/L (45-117); BUN Blood Urea Nitrogen 20 mg/dL (7-18); Bicarbonate 30 mmol/L (21-32); Bilirubin Direct 0.1 mg/dL (0-0.2); Bilirubin Total 0.7 mg/dL (0.2-1.0); Potassium 3.4 mmol/L (3.5-5.1); Protein, Total 6.5 g/dL (6.4-8.2); Sodium Level 146 mmol/L (136-145)
[2020-08-30 11:22] LABS: Glucose Level 47 mg/dL (74-106)
--- NOTE | 2020-08-30 12:08 | EDPHYS ---
Physician Documentation [facility] Name: Keshav Robert Age: 30 yrs Sex: Male : 1990 Arrival Date: 08/30/2020 Time: 10:17 Bed 17 Private MD: ED Physician Aashish Dougherty HPI: 08/30 12:02 This 30 yrs old Male presents to ER via EMS with complaints of Low Blood diogo Sugar. 12:02 The patient or guardian reports hyperglycemia, that was potentially precipitated by no diogo particular event. Onset: The symptoms/episode began/occurred just prior to arrival. Associated signs and symptoms: Pertinent positives: anorexia. Current symptoms: In the emergency department the patient's symptoms have improved, markedly, is more alert. The patient has experienced similar episodes in the past, several times. Historical: - Allergies: 10:24 No Known Allergies; ss - PMHx: 10:24 Diabetes - IDDM; RETINAL DETACHMENT; ss - PSHx: 10:24 L eye blind. Cleft lip/palate sx; ss - Immunization history:: Adult Immunizations up to date. - Social history:: Smoking status: Patient denies any tobacco usage or history of. ROS: 12:03 Constitutional: Negative for fever, chills, and weight loss, Eyes: Negative for injury, diogo pain, redness, and discharge, ENT: Negative for injury, pain, and discharge, Neck: Negative for injury, pain, and swelling, Cardiovascular: Negative for chest pain, palpitations, and edema, Respiratory: Negative for shortness of breath, cough, wheezing, and pleuritic chest pain, Abdomen/GI: Negative for abdominal pain, nausea, vomiting, diarrhea, and constipation, Back: Negative for injury and pain, : Negative for injury, bleeding, discharge, and swelling, MS/Extremity: Negative for injury and deformity, Skin: Negative for injury, rash, and discoloration, Psych: Negative for depression, anxiety, suicide ideation, homicidal ideation, and hallucinations, Allergy/Immunology: Negative for hives, rash, and allergies, Endocrine: Negative for neck swelling, polydipsia, polyuria, polyphagia, and marked weight changes. 12:03 Neuro: Positive for altered mental status, syncope, weakness. Exam: 12:03 Constitutional: This is a well developed, well nourished patient who is awake, alert, diogo and in no acute distress. Head/Face: Normocephalic, atraumatic. Eyes: Pupils equal round and reactive to light, extra-ocular motions intact. Lids and lashes normal. Conjunctiva and sclera are non-icteric and not injected. Cornea within normal limits. Periorbital areas with no swelling, redness, or edema. ENT: Nares patent. No nasal discharge, no septal abnormalities noted. Tympanic membranes are normal and external auditory canals are clear. Oropharynx with no redness, swelling, or masses, exudates, or evidence of obstruction, uvula midline. Mucous membranes moist. Neck: Trachea midline, no thyromegaly or masses palpated, and no cervical lymphadenopathy. Supple, full range of motion without nuchal rigidity, or vertebral point tenderness. No Meningismus. Chest/axilla: Normal chest wall appearance and motion. Nontender with no deformity. No lesions are appreciated. Cardiovascular: Regular rate and rhythm with a normal S1 and S2. No gallops, murmurs, or rubs. Normal PMI, no JVD. No pulse deficits. Respiratory: Lungs have equal breath sounds bilaterally, clear to auscultation and percussion. No rales, rhonchi or wheezes noted. No increased work of breathing, no retractions or nasal flaring. Abdomen/GI: Soft, non-tender, with normal bowel sounds. No distension or tympany. No guarding or rebound. No evidence of tenderness throughout. Back: No spinal tenderness. No costovertebral tenderness. Full range of motion. Male : Normal genitalia with no discharge or lesions. Skin: Warm, dry with normal turgor. Normal color with no rashes, no lesions, and no evidence of cellulitis. MS/ Extremity: Pulses equal, no cyanosis. Neurovascular intact. Full, normal range of motion. Neuro: Awake and alert, GCS 15, oriented to person, place, time, and situation. Cranial nerves II-XII grossly intact. Motor strength 5/5 in all extremities. Sensory grossly intact. Cerebellar exam normal. Normal gait. Psych: Awake, alert, with orientation to person, place and time. Behavior, mood, and affect are within normal limits. 12:13 ECG was reviewed by the Attending Physician. [facility] Vital Signs: 10:19 BP 126 / 83; Pulse 80; Resp 18; Temp 97.6(TE); Pulse Ox 99% on R/A; Weight 83.91 kg; ss Height 5 ft. 8 in. (172.72 cm); Pain 0/10; 11:15 BP 122 / 70; Pulse 81; Resp 18; Pulse Ox 100% on R/A; tr6 10:19 Body Mass Index 28.13 (83.91 kg, 172.72 cm) ss MDM: 10:17 Patient medically screened. [facility] 12:12 Differential diagnosis: DKA, gestational diabetes, hyperglycemia, hypoglycemic episode. [facility] Data reviewed: vital signs, nurses notes, lab test result(s), EKG, radiologic studies, plain films. Data interpreted: monitor technician: rate is 81 beats/min, rhythm is regular, Pulse oximetry: on room air is 100 %. Test interpretation: by ED physician or midlevel provider: ECG, plain radiologic studies. Counseling: I had a detailed discussion with the patient and/or guardian regarding: the historical points, exam findings, and any diagnostic results supporting the discharge/admit diagnosis, the presence of at least one elevated blood pressure reading (>120/80) during this emergency department visit, lab results, radiology results, the need for outpatient follow up, for definitive care, a family practitioner. 08/30 10:18 Order name: Acetaminophen; Complete Time: 12:01 [facility] 08/30 10:18 Order name: Basic Metabolic Panel; Complete Time: 12: [facility] 08/30 10:18 Order name: CBC with Diff; Complete Time: 12: [facility] 08/30 10:18 Order name: ETOH Level; Complete Time: 12: [facility] 08/30 10:18 Order name: Hepatic Function; Complete Time: 12: [facility] 08/30 10:18 Order name: PT-INR; Complete Time: 12: [facility] 08/30 10:18 Order name: Ptt, Activated; Complete Time: 12:01 [facility] 08/30 10:18 Order name: Salicylate; Complete Time: 12:01 [facility] 08/30 10:18 Order name: EKG; Complete Time: 10:19 [facility] 08/30 10:18 Order name: Diet Regular; Complete Time: 10:19 [facility] 08/30 10:27 Order name: Glucose, Ancillary Testing; Complete Time: 12:01 [facility] 08/30 12:55 Order name: Glucose, Ancillary Testing [facility] 08/30 10:18 Order name: EKG - Nurse/Tech; Complete Time: 11:23 [facility] 08/30 10:18 Order name: IV Saline Lock; Complete Time: 10:19 [facility] 08/30 10:18 Order name: Labs collected and sent; Complete Time: 10:19 [facility] 08/30 10:18 Order name: Suicide Screening ([place]); Complete Time: 10:33 [facility] 08/30 10:18 Order name: PO challenge; Complete Time: 10:19 [facility] 08/30 10:18 Order name: Seizure Precautions; Complete Time: 10:19 [facility] 08/30 12:05 Order name: Blood Glucose Level; Complete Time: 12:44 [facility] EC:13 Rate is 77 beats/min. Rhythm is regular. QRS [place] is Normal. OK interval is normal. QRS diogo interval is normal. QT interval is normal. No Q waves. T waves are Normal. No ST changes noted. Clinical impression: Normal ECG and No evidence of ischemia. Interpreted by me. Reviewed by me. Administered Medications: 12:47 Drug: Potassium Effervescent Tablet 25 mEq Route: PO; tr6 Disposition: 08/30/20 12:06 Discharged to Home. Impression: Type 1 diabetes mellitus, Hypoglycemia, unspecified, Hypokalemia. - Condition is Stable. - Discharge Instructions: Type 1 Diabetes Mellitus, Diagnosis, Adult, Potassium Content of Foods, Hypoglycemia, Blood Glucose Monitoring, Adult, Hypoglycemia, [id number], Hypokalemia, Type 1 Diabetes Mellitus, Self Care, Adult, Type 1 Diabetes Mellitus, Self Care, Adult, [id number]. - Medication Reconciliation Form, Thank You Letter, Antibiotic Education, Prescription Opioid Use form. - Follow up: Private Physician; When: 2 - 3 days; Reason: Recheck today's complaints, Continuance of care, Re-evaluation by your physician. - Problem is new. - Symptoms have improved. Signatures: Dispatcher [employer] EDMS Aashish Dougherty MD MD cha Smirch, Shelby RN RN Zohreh Meyer RN RN tr6 Corrections: (The following items were deleted from the chart) 13:09 12:06 08/30/2020 12:06 Discharged to Home. Impression: Type 1 diabetes mellitus; tr6 Hypoglycemia, unspecified; Hypokalemia. Condition is Stable. Forms are Medication Reconciliation Form, Thank You Letter, Antibiotic Education, Prescription Opioid Use. Follow up: Private Physician; When: 2 - 3 days; Reason: Recheck today's complaints, Continuance of care, Re-evaluation by your physician. Problem is new. Symptoms have improved. diogo
--- NOTE | 2020-08-30 12:08 | ER ---
Nurse's Notes [facility] Name: Keshav Robert Age: 30 yrs Sex: Male : 1990 Arrival Date: 08/30/2020 Time: 10:17 Bed 17 Private MD: Diagnosis: Type 1 diabetes mellitus;Hypoglycemia, unspecified;Hypokalemia Presentation: 08/30 10:19 Chief complaint: EMS states: called EMS for "shaking". EMS reports that upon ss arrival which was 10 minutes after the call, pt was unresponsive, BGL found to be 27, but VS otherwise were stable. D10, approximately 7 G was administered en route to ED. Pt is now awake and talking. HX of Type 1 diabetes. Coronavirus screen: Client denies travel out of the [place] in the last 14 days. Ebola Screen: Patient denies exposure to infectious person. Patient denies travel to an Ebola-affected area in the 21 days before illness onset. Initial Sepsis Screen: Does the patient meet any 2 criteria? No. Patient's initial sepsis screen is negative. Does the patient have a suspected source of infection? No. Patient's initial sepsis screen is negative. Risk Assessment: Do you want to hurt yourself or someone else? Patient reports no desire to harm self or others. Onset of symptoms was August 30, 2020. 10:19 Method Of Arrival: EMS: [facility] 10:19 Acuity: ALIS 3 10:26 Care prior to arrival: IV initiated. 20 GA, in the right hand. 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 - Social history:: Smoking status: Patient denies any tobacco usage or history of. Screenin:30 Abuse screen: Denies threats or abuse. Denies injuries from another. Nutritional tr6 screening: No deficits noted. Tuberculosis screening: No symptoms or risk factors identified. Fall Risk None identified. Assessment: 10:39 General: Appears in no apparent distress. comfortable, Behavior is calm, cooperative, tr6 appropriate for age. Pain: Denies pain. Neuro: No deficits noted. Cardiovascular: No deficits noted. Respiratory: No deficits noted. GI: No deficits noted. : No deficits noted. EENT: No deficits noted. Derm: No deficits noted. Musculoskeletal: No deficits noted. Vital Signs: 10:19 BP 126 / 83; Pulse 80; Resp 18; Temp 97.6(TE); Pulse Ox 99% on R/A; Weight 83.91 kg; Height 5 ft. 8 in. (172.72 cm); Pain 0/10; 11:15 BP 122 / 70; Pulse 81; Resp 18; Pulse Ox 100% on R/A; tr6 10:19 Body Mass Index 28.13 (83.91 kg, 172.72 cm) ED Course: 10:17 Patient arrived in ED. 10:17 Aashish Dougherty MD is Attending Physician. [facility] 10:19 Zohreh Gomez, RN is Primary Nurse. tr6 10:23 Triage completed. ss 10:24 Arm band placed on right wrist. 11:30 Patient has correct armband on for positive identification. Fall risk band placed. tr6 Placed in gown. Bed in low position. Call light in reach. Side rails up X 1. Side rails up X2. 11:30 No provider procedures requiring assistance completed. Maintain EMS IV. Site clean \\T\\ tr6 dry. Gauge \\T\\ site: 20 R W. Administered Medications: 12:47 Drug: Potassium Effervescent Tablet 25 mEq Route: PO; tr6 Outcome: 12:06 Discharge ordered by . diogo 13:09 Patient left the ED. tr6 Signatures: Aashish Dougherty MD MD cha Smirch, Shelby RN RN Zohreh Gomez, LARISSA RN tr6
[2020-08-30] MEDS ORDERED: POTASSIUM 25 MEQ EFFERV TAB ONE (13:06)
[2020-08-30 13:19] VITALS: TEMP 97.6
[2020-08-30 13:20] VITALS: BP 122/70; O2SAT 100
== END 2020-08-30 13:09 | disposition home or self-care (01) ==
LOC: ER 10:11
DX: E10.649 Type 1 diabetes mellitus with hypoglycemia without coma (principal); E87.6 Hypokalemia
CPT/HCPCS: 36415; 80048; 80076; 80320; 80329; 82947; 85025; 85610; 85730; 93005; 99283